=== PATIENT | female | born 1995 | race Caucasian/White ===

== ENCOUNTER 2018-08-23 22:06 | Emergency (ER) | payer OTHER, MEDICAID ==
[2018-08-24] MEDS: IBUPROFEN 600 MG TAB PO (00:47)
== END 2018-08-24 04:03 | disposition home or self-care (01) ==
LOC: FTE 22:06
DX: S92.352A Displaced fracture of fifth metatarsal bone, left foot, initial encounter for closed fracture (principal); W18.39XA Other fall on same level, initial encounter; Y92.310 Basketball court as the place of occurrence of the external cause
CPT/HCPCS: 29515; 73630-LT; 99283-25